=== PATIENT | female | born 1995 | race Caucasian/White ===

== ENCOUNTER → 2020-08-27 | Outpatient (CLI) | payer BC ==
[~2020-08-27] MED LIST: COLACE 100MG C100 MG PO; FERROUS SULFAT325 M2 PO; IBUPROFEN600 MG PO; LORTAB 5-325 M1 EACH PO
== END ==
LOC: LAB 12:40
DX: Z32.00 Encounter for pregnancy test, result unknown (principal)
CPT/HCPCS: 36415; 84702

== ENCOUNTER → 2020-08-29 | Outpatient (CLI) | payer BC | LOC: LAB 15:04 | DX: Z32.00 Encounter for pregnancy test, result unknown (principal) | CPT/HCPCS: 84702 ==